=== PATIENT | male | born 1985 | race Caucasian/White ===

== ENCOUNTER 2025-08-20 03:08 | Outpatient (CLI) | payer OTHER, SELFPAY ==
--- NOTE | 2025-08-20 | DI.RAD_ITS ---
Exam(s) XR KNEE RT 3V AP,LAT,CECILIO EXAM: XR KNEE RT 3V AP,LAT,CECILIO CLINICAL HISTORY: DEGENERATIVE ARTHRITIS, M19.90. TECHNIQUE: 2D digital imaging was performed. Three views. COMPARISON: No exams were available for comparison FINDINGS: BONES: No acute fracture is present. No bony destructive lesion is seen. JOINTS: The knee is normally aligned. No joint effusion is seen. There is minimal spurring at the articular aspect of the patella. The joint spaces are maintained. SOFT TISSUE: Normal. IMPRESSION: Minimal degenerative changes at the patellofemoral joint. DATA REPOSITORY: RADIATION DOSE DELIVERED:
--- NOTE | 2025-08-20 | DI.RAD_ITS ---
Exam(s) XR WRIST RT LIMITED EXAM: XR WRIST RT LIMITED CLINICAL HISTORY: DEGENERATIVE ARTHRITIS, M19.90. TECHNIQUE: 2D digital imaging was performed. Two views. COMPARISON: No exams were available for comparison FINDINGS: BONES: No acute fracture is present. No bony destructive lesion is seen. JOINTS: The carpal bones are normally aligned. No joint space narrowing. No periarticular spurring. SOFT TISSUE: Normal. IMPRESSION: Unremarkable radiographs of the right wrist. No significant degenerative changes. DATA REPOSITORY: RADIATION DOSE DELIVERED:
--- NOTE | 2025-08-20 | DI.RAD_ITS ---
Exam(s) XR KNEE LT 3V AP,LAT,CECILIO EXAM: XR KNEE LT 3V AP,LAT,CECILIO CLINICAL HISTORY: DEGENERATIVE ARTHRITIS, M19.90. TECHNIQUE: 2D digital imaging was performed. Three views. COMPARISON: CR XR KNEE RT 3V AP,LAT,CECILIO from 08/20/2025 FINDINGS: BONES: No acute fracture is present. No bony destructive lesion is seen. JOINTS: The knee is normally aligned. No joint effusion is seen. SOFT TISSUE: Normal. IMPRESSION: Normal radiographs of the left knee. No significant degenerative changes. DATA REPOSITORY: RADIATION DOSE DELIVERED:
--- NOTE | 2025-08-20 | DI.RAD_ITS ---
Exam(s) XR FOOT LT LIMITED XR FOOT RT LIMITED EXAM: XR FOOT RT LIMITED CLINICAL HISTORY: degenerative arthritis, M19.90. TECHNIQUE: 2D digital imaging was performed. Weight-bearing AP and lateral views of both feet COMPARISON: CR XR FOOT LT LIMITED from 08/20/2025 FINDINGS: BONES: No acute fracture is present. No bony destructive lesion is seen. JOINTS: No dislocation present. No significant degenerative changes. The plantar arches are maintained. SOFT TISSUE: Normal. IMPRESSION: Unremarkable radiographs of the bilateral feet DATA REPOSITORY: RADIATION DOSE DELIVERED:
== END 2025-08-20 03:28 ==
LOC: DI 03:08
PROVIDERS: Visit Provider Chiropractor
DX: M19.90 Unspecified osteoarthritis, unspecified site (principal); J45.998 Other asthma
CPT/HCPCS: 73562; 73100; 73620

== ENCOUNTER 2025-08-20 03:29 | Outpatient (CLI) | payer OTHER, SELFPAY ==
[2025-08-20] MEDS: Levalbuterol HFA 15 GM INH 4 PUFF IH (13:02)
[2025-08-20] MEDS: Inhaler, Assist Device 1 EACH MC (13:02)
--- NOTE | 2025-08-24 07:45 | W.PFT ---
Date of service: 08/20/25 Time of Service: 10:12 Pulmonary Function Test Result Indications: 1. Good patient effort was noted. ATS standards for reproducibility were met. 2. Normal spirometry. 3. Following the administration of a bronchodilator there was not a significant response
== END 2025-08-20 03:30 | disposition home or self-care (01) ==
LOC: RT 03:29
PROVIDERS: Visit Provider Internal Medicine Pulmonary Disease
DX: M19.90 Unspecified osteoarthritis, unspecified site (principal); J45.998 Other asthma
CPT/HCPCS: 94060